=== PATIENT | female | born 1950 ===

== ENCOUNTER 2022-03-29 10:41 | Day surgery (SDC) | payer MEDICARE, OTHER ==
[~2022-03-29 10:41] MED LIST: Acetaminophen 325 MG Tab PO SCH; Lactated Ringers 1,000 ML IV SCH; Lidocaine 1%/Sod Bicarbonate in NS 8.4% 1 ML Syringe IDERM PRN; Morphine 8 MG, EPINEPHrine 0.3 MG, Cefuroxime 750 MG, Ketorolac 30 MG, Sodium Chloride ... PRN; Pregabalin 25 MG Cap PO SCH; Sodium Chloride 0.9% 10 ML Syringe FLUSH PRN; Sodium Chloride 0.9% 10 ML Syringe FLUSH SCH; oxyCODONE ER 10 MG TAB.ER PO SCH
[2022-03-29] MEDS ORDERED: EPINEPHrine 1 MG/ML SDV ONE (11:04)
[2022-03-29] MEDS ORDERED: Dexmedetomidine 200 MCG/2 ML SDV ONE (11:04)
[2022-03-29] MEDS ORDERED: Ropivacaine 0.5% 5 MG/ML 30 ML SDV ONE (11:05)
[2022-03-29] MEDS ORDERED: ceFAZolin 2 GM Vial ONE (11:46)
[2022-03-29] MEDS ORDERED: Propofol 200 MG/20 ML SDV ONE (11:46)
[2022-03-29] MEDS ORDERED: Midazolam 1 MG/ML 2 ML SDV ONE (11:46)
[2022-03-29] MEDS ORDERED: fentaNYL 100 MCG/2 ML SDV ONE (11:46)
[2022-03-29] MEDS ORDERED: Lactated Ringers 1,000 ML ONE (11:49)
[2022-03-29] MEDS ORDERED: Vancomycin 1 GM SDV ONE (12:06)
[2022-03-29] MEDS ORDERED: Tranexamic Acid 1,000 MG/10 ML Vial ONE (12:06)
[2022-03-29] MEDS ORDERED: Ondansetron 4 MG/2 ML SDV IVPUSH PRN (13:00)
[2022-03-29] MEDS ORDERED: fentaNYL 100 MCG/2 ML SDV IVPUSH PRN (13:00)
[2022-03-29] MEDS ORDERED: HYDROmorphone 0.5 MG/0.5 ML Syringe IVPUSH PRN (13:00)
[2022-03-29] MEDS ORDERED: Ondansetron 4 MG/2 ML SDV ONE (13:27)
[2022-03-29] MEDS ORDERED: Acetaminophen/HYDROcodone 325-5 MG Tab PO SCH (14:18)
== END 2022-03-29 16:55 | disposition home or self-care (01) ==
LOC: JD.SDS 10:41
PROVIDERS: ATTEND Orthopaedic Surgery
DX: M17.0 Bilateral primary osteoarthritis of knee (principal); J30.9 Allergic rhinitis, unspecified; F41.9 Anxiety disorder, unspecified; K58.9 Irritable bowel syndrome, unspecified; E55.9 Vitamin D deficiency, unspecified; Z88.5 Allergy status to narcotic agent; Z79.899 Other long term (current) drug therapy; Z98.890 Other specified postprocedural states; Z79.82 Long term (current) use of aspirin
CPT/HCPCS: 0055T; 27447; 64447; 73560; 97110; 97116; 97161; A9270; C1713; C1776; J0171; J0690; J0697; J1885; J2250; J2270; J2405; J2704; J2795; J3010; J3370; J7120; 01402; 64450; 99100; J3490